=== PATIENT | male | born 1980 | race American Indian/Alaskan Native ===

== ENCOUNTER 2017-01-12 15:58 | Emergency (ER) | payer OTHER ==
[2017-01-12 16:06] VITALS: BP 138/84; PULSE 59; RESP 16; TEMP 97.5; O2SAT 98
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
== END 2017-01-12 17:00 | disposition home or self-care (01) ==
LOC: H.ER 15:58
DX: M54.9 Dorsalgia, unspecified (principal); V43.52XA Car driver injured in collision with other type car in traffic accident, initial encounter; Y92.410 Unspecified street and highway as the place of occurrence of the external cause; Y99.0 Civilian activity done for income or pay